=== PATIENT | female | born 1975 | race American Indian/Alaskan Native ===

== ENCOUNTER 2017-12-21 13:20 | Emergency (ER) | payer OTHER ==
[2017-12-21 16:31] LABS: HCG Qualitative,Urine Negative (Negative)
[2017-12-21 16:35] LABS: Amorphous Crystals,Urine Few; Bacteria,Urine 1+ /HPF (Negative); Bilirubin,Urine NEG (Negative); Blood,Urine NEG (Negative); Color,Urine Yellow (Yellow); Mucus,Urine FEW /HPF; Protein,Urine <15 mg/dL mg/dL (Negative); Urobilinogen,Urine < 2.0 mg/dL (<2.0)
[2017-12-21] MEDS ORDERED: ZOFRAN ODT PO ONE (17:24)
[2017-12-21] MEDS ORDERED: ULTRAM PO ONE (17:24)
--- NOTE | 2017-12-21 17:26 | Emergency Department Report ---
Chief Complaint: Abdominal Pain Stated Complaint: ABD PAIN Time Seen by Provider: 12/21/17 17:20 - HPI History of Present Illness: The patient is a 42-year-old female with a history of fibroids, whom presents for evaluation of abdominal and pelvic pain. The patient reports lower abdominal pelvic pain since last night, constant, 10/10 in severity, sharp and squeezing quality, exacerbated with movement. The patient denies fever, chills, night sweats, vaginal discharge, vaginal bleeding, trauma to the abdomen, diarrhea, blood in the stool, dark tarry stool, dysuria, hematuria, flank pain, inability to pass flatus. - Exam Vital Signs: Vital Signs 12/21/17 13:49 Temperature 98.1 F Pulse Rate 84 Respiratory 18 Rate Blood Pressure 128/74 O2 Sat by Pulse 100 Oximetry MSE screening note: Focused history and physical exam performed. Due to findings the following was ordered: ED Disposition for MSE Condition: Stable Instructions: Abdominal Pain (ED) Referrals: PRIMARY CARE, [Primary Care Provider] - 3-5 Days
[2017-12-21] MEDS ORDERED: FLAGYL PO ONE (17:49)
--- NOTE | 2017-12-21 18:49 | Ultrasound Report ---
FINAL REPORT EXAM: US EXAM PELVIC COMPLETE HISTORY: HX OF FIBROIDS. B/L lower PELVIC PAIN. LMP 12/18/2017 TECHNIQUE: Ultrasound of the pelvis using transabdominal and transvaginal imaging PRIORS: None. FINDINGS: Uterus: Uterus is enlarged in size and heterogeneous in echogenicity. The uterus measures 11.3 x 7.1 x 7.2 cm in size. There are several distinct fibroids identified: The largest is within the myometrium of the left side of the fundus measuring 3.0 x 3.2 x 3.4 cm. This fibroid is isoechoic and heterogeneous. The 2nd is in the myometrium of the right side of the uterus measuring 2.6 x 2.6 x 2.9 cm. This fibroid is heterogeneous and predominantly hypoechoic. A 3rd fibroid extends exophytically off the fundus superiorly measuring 1.8 x 1.7 cm. Several nabothian cysts are seen in the cervix. This fibroid is homogeneously hypoechoic. Endometrial stripe: Normal and uniform in thickness measuring 4.5 mm. Ovaries: Both ovaries appear normal in size and echogenicity with normal blood flow bilaterally. The right ovary measures 2.8 x 1.9 x 2.8 cm and the left ovary measures 2.8 x 1.5 x 2.2 cm in size. Bilateral ovarian cysts, likely physiologic. The left ovarian cyst has minimal internal debris. Both of the cysts are almost certainly benign. Other: There is no evidence for solid adnexal mass or free fluid in the cul-de-sac seen. IMPRESSION: large heterogeneous uterus containing at least 3 uterine fibroids
[2017-12-21 19:03] VITALS: BP 132/84
--- NOTE | 2017-12-21 19:47 | Emergency Department Report ---
ED Female HPI - General Chief complaint: Abdominal Pain Stated complaint: ABD PAIN Time Seen by Provider: 12/21/17 17:20 Source: patient Mode of arrival: Ambulatory Limitations: No Limitations - History of Present Illness Initial comments: This is a 42-year-old female nontoxic, well nourished in appearance, no acute signs of distress presents to the ED with c/o of pelvic pain. Patient described pain as aching/cramping with level of 8/10. Patient did exacerbated with movement. Patient denies any fever, chills, nausea, vomiting, chest pain, shortness of breath, vaginal discharge, vaginal bleeding, trauma to the abdomen , constipation or diarrhea, patient also denies any urinary symptoms or flank pain. Patient states past medical history of fibroids and has similar symptoms of pain. MD Complaint: pelvic pain -: week(s) (1) Radiation: non-radiating Severity: mild Severity scale (0 -10): 8 Quality: cramping, aching Consistency: intermittent Improves with: none Worsens with: none Are you Now?: No Associated Symptoms: denies other symptoms. denies: vaginal discharge, vaginal bleeding, abdominal pain, nausea/vomiting, fever/chills, headaches, loss of appetite, dysuria, hematuria, rash, seizure, shortness of breath, syncope, weakness - Related Data Sexually active: No Previous Rx's Medication Instructions Recorded Last Taken Type Ibuprofen [Motrin] 800 mg PO Q8HR PRN #20 tablet 12/21/17 Unknown Rx metroNIDAZOLE [Flagyl] 500 mg PO Q12HR #14 tab 12/21/17 Unknown Rx Allergies Allergy/AdvReac Type Severity Reaction Status Date / Time No Known Allergies Allergy Unverified 12/21/17 13:53 ED Review of Systems ROS: Stated complaint: ABD PAIN Other details as noted in HPI Constitutional: denies: chills, fever Eyes: denies: eye pain, eye discharge, vision change ENT: denies: ear pain, throat pain Respiratory: denies: cough, shortness of breath, wheezing Cardiovascular: denies: chest pain, palpitations Endocrine: no symptoms reported Gastrointestinal: denies: abdominal pain, nausea, diarrhea Genitourinary: denies: urgency, dysuria, discharge Musculoskeletal: denies: back pain, joint swelling, arthralgia Skin: denies: rash, lesions Neurological: denies: headache, weakness, paresthesias Psychiatric: denies: anxiety, depression Hematological/Lymphatic: denies: easy bleeding, easy bruising ED Past Medical Hx - Past Medical History Previous Medical History?: No Additional medical history: ovarian cyst,fibroids - Surgical History Additional Surgical History: parathyroid, - Social History Smoking Status: Never Smoker Substance Use Type: None - Medications Home Medications: Home Medications Medication Instructions Recorded Confirmed Last Taken Type Ibuprofen [Motrin] 800 mg PO Q8HR PRN #20 tablet 12/21/17 Unknown Rx metroNIDAZOLE [Flagyl] 500 mg PO Q12HR #14 tab 12/21/17 Unknown Rx ED Physical Exam - General Limitations: No Limitations General appearance: alert, in no apparent distress - Head Head exam: Present: atraumatic, normocephalic - Eye Eye exam: Present: normal appearance Pupils: Present: normal accommodation - ENT ENT exam: Present: normal exam, mucous membranes moist - Neck Neck exam: Present: normal inspection, full ROM - Respiratory Respiratory exam: Present: normal lung sounds bilaterally. Absent: respiratory distress, wheezes, rales, rhonchi, stridor, chest wall tenderness, accessory muscle use, decreased breath sounds, prolonged expiratory - Cardiovascular Cardiovascular Exam: Present: regular rate, normal rhythm, normal heart sounds. Absent: bradycardia, irregular rhythm, systolic murmur, diastolic murmur, rubs , gallop - GI/Abdominal GI/Abdominal exam: Present: soft, tenderness (bilateral lower pelvic region), normal bowel sounds. Absent: distended, guarding, rebound, diminished bowel sounds - Expanded GI/Abdominal Exam Expanded GI/Abdominal exam: Absent: psoas sign, obturator sign, heel tap sign, Felder's sign, Rovsing's sign, tenderness at Mcburney's Point, ascites - Rectal Rectal exam: Present: deferred - Extremities Exam Extremities exam: Present: normal inspection, full ROM, normal capillary refill - Back Exam Back exam: Present: normal inspection, full ROM. Absent: tenderness, CVA tenderness (R), CVA tenderness (L), muscle spasm, paraspinal tenderness, vertebral tenderness, rash noted - Neurological Exam Neurological exam: Present: alert, oriented X3, normal gait - Psychiatric Psychiatric exam: Present: normal affect, normal mood - Skin Skin exam: Present: warm, dry, intact, normal color. Absent: rash ED Course Vital Signs 12/21/17 12/21/17 12/21/17 13:49 17:33 19:03 Temperature 98.1 F Pulse Rate 84 68 Respiratory 18 16 18 Rate Blood Pressure 128/74 Blood Pressure 132/84 [Left] O2 Sat by Pulse 100 100 Oximetry - Reevaluation(s) Reevaluation #1: 12/21/17 19:52 Patient is speaking in full sentences with no signs of distress noted. - Consultations Consultation #1: 12/21/17 19:52 Patient has been consulted with Dr. Farley about patient history, physical exam, and labs and examined and screened patient and agrees to ED plan of care and discharge plan of care. ED Medical Decision Making - Medical Decision Making This is a 42-year-old female who presents with uterine fibroids. Patient stable and was examined by me and Dr. Farley. Ultrasound has been obtained and dictated by the radiologist with 3 large fibroids. Patient was notified of the ultrasound report with no questions noted by the patient. patient discharged with motrin. Patient also received a prescrption for Flagyl from Dr. Farley as patient stated she has a "foul vaginal odor". Patient was instructed to refer to Follow-up with a CARE GIVER in 3-5 days or if symptoms worsen and continue return to emergency room as soon as possible. At time of discharge, the patient does not seem toxic or ill in appearance. No acute signs of distress noted. Patient agrees to discharge treatment plan of care. No further questions noted by the patient. Critical care attestation.: If time is entered above; I have spent that time in minutes in the direct care of this critically ill patient, excluding procedure time. ED Disposition Clinical Impression: Uterine fibroid Qualifiers: Uterine leiomyoma location: unspecified location Qualified Code(s): D25.9 - Leiomyoma of uterus, unspecified Disposition: DC-01 TO HOME OR SELFCARE Is pt being admited?: No Does the pt Need Aspirin: No Condition: Stable Instructions: Uterine Fibroids (ED), Metronidazole (By mouth) Additional Instructions: Follow-up with a PRESS OPERATOR HELPER doctor in 3-5 days or if symptoms worsen and continue return to emergency room as soon as possible. Do not consume any alcohol while taking Flagyl. Prescriptions: Ibuprofen [Motrin] 800 mg PO Q8HR PRN #20 tablet PRN Reason: Pain metroNIDAZOLE [Flagyl] 500 mg PO Q12HR #14 tab Referrals: PRIMARY CARE, [Primary Care Provider] - 3-5 Days SANTOSH GREEN MD [Staff Physician] - 3-5 Days [facility] [Outside] - 3-5 Days [facility] [Outside] - 3-5 Days Forms: Work/School Release Form(ED)
== END 2017-12-21 20:01 | disposition home or self-care (01) ==
LOC: ED 13:20
DX: D25.9 Leiomyoma of uterus, unspecified (principal)
CPT/HCPCS: 76830; 76856; 81001; 81025; 99284; Q0162